=== PATIENT | male | born 1965 | race Caucasian/White ===

== ENCOUNTER 2022-07-13 18:25 | Emergency (ER) | payer OTHER ==
[~2022-07-13] VITALS: Ht 172.7 cm; Wt 68.0 kg
[2022-07-13] MEDS ORDERED: SYMBICORT 16010.2 GM IH (19:03)
[2022-07-13] MEDS ORDERED: ATACAND4 MG PO (19:03)
[2022-07-13] MEDS ORDERED: GLUMETZA500 MG PO (19:03)
[2022-07-13] MEDS ORDERED: CRESTOR5 MG PO (19:03)
[2022-07-13] MEDS ORDERED: PROTONIX20 MG PO (19:04)
[2022-07-13] MEDS ORDERED: PROMETH-CODEIN 65 ML PO (21:53)
[2022-07-13] MEDS ORDERED: IPRAT-ALBUT 0.5-3 ML IH (21:53)
[2022-07-13] MEDS ORDERED: BUDESONIDE0.5 MG/2 M IH (21:53)
[2022-07-13] MEDS ORDERED: BENZONATATE200 M1 PO (21:53)
== END 2022-07-13 21:58 ==
LOC: ER 18:25
DX: J44.1 Chronic obstructive pulmonary disease with (acute) exacerbation (principal); R06.02 Shortness of breath; Z20.822 Contact with and (suspected) exposure to COVID-19; I10 Essential (primary) hypertension